=== PATIENT | male | born 1960 | race African-American/Black ===

== ENCOUNTER 2016-10-05 10:19 | Outpatient (CLI) | payer MEDICARE ==
[~2016-10-05] VITALS: Ht 172.7 cm; Wt 69.1 kg
--- NOTE | ~2016-10-05 | HEMODYNAMI ---
PATIENT:GREGORIO PORTILLO MEDICAL RECORD: [id number] : 64 LOCATION:[facility]O ADMISSION DATE: 10/05/16 Generatedon:10/05/201614:23 Patient name: GREGORIO PORTILLO Patient #: [id number] SSN: : 1960 Date of study: 10/05/2016 Page: Of Hemodynamic Procedure Report Patient Data Patient Demographics Procedure consent was obtained First Name: GREGORIO Gender: Male Last Name: BANDAR : 1960 [facility] Initial: KEVIN Age: 55 year(s) Patient #: [id number] Race: Black Additional ID: [id number] Contact details Address: [address] [place] [address] State: [place] City: [facility] Zip code: [address] Past Medical History History of disease Date Diagnosis Comments Hypertension Allergies Allergen Reaction Date Comments Reported Penicillins 03/04/2015 Admission Admission Data Admission Date: 10/05/2016 Admission Time: 10:19 Procedure Procedure Types Cath Procedure Peripheral Cath Diagnostic Procedure Venography Extremity Procedure Description Procedure Date Procedure Date: 10/05/2016 Procedure Start Time: 13:12 Procedure Staff Name Function Mango Garcia MD Performing Physician aZckary Dial RT Scrub Swetha Edmonds RN Nurse Saul Jauregui RT Monitor Procedure Data Cath Procedure Fluoroscopy Diagnostic fluoroscopy Total fluoroscopy Time: time: 20.4 min 20.4 min Diagnostic fluoroscopy Total fluoroscopy dose: dose: 203.19 mGy 203.19 mGy Contrast Material Contrast Material Type Amount (ml) Isovue 300 143 Entry Location Entry Primary Successful Side Size Upsize 1 Upsize Entry Closure Artis ccessful Closure Location (Fr) (Fr) 2 (Fr) Remarks Device Remarks Femoral Right 5 Fr 6 Fr Exoseal artery Mid-Length Diagnostic catheters Device Type Used For End Catheter Placement Merit ULTRA BOLUS FLUSH 5Fr 65CM catheter Procedure Medications Medication Administration Route Dosage Oxygen NC 2 l/min Heparin Flush Bag added to field 2 bags (1000units/500ml NS) Lidocaine 2% added to field 20 Benadryl I.V. 50 mg Versed I.V. 1 mg Fentanyl I.V. 50 mcg Versed I.V. 0.5 mg Fentanyl I.V. 25 mcg Heparin Bolus I.V. 5000 units Integrilin (Bolus I.V. 6.2 ml 2mg/ml) Versed I.V. 0.5 mg Fentanyl I.V. 25 mcg Versed I.V. 0.5 mg Versed I.V. 0.5 mg Versed I.V. 0.5 mg Heparin Bolus I.V. 2000 units Nitroglycerin IC/IA I.C. 200 mcg Versed I.V. 0.5 mg Fentanyl I.V. 25 mcg Plavix P.O. 600 mg Hemodynamics Rest Heart Rate: 84 (bpm) Snapshots Pre Cath Intra NCS Post Cath Vital Signs Time Heart Resp SPO2 NIBP (mmHg) Rhythm Pain Sedation Rate (ipm) (%) Status Level (bpm) 12:58:49 76 18 98 156/90(124) NSR 0 (11) 10(A) , No pain 13:03:03 88 16 100 167/96(116) NSR 0 (11) 10(A) , No pain 13:07:22 88 17 99 157/87(125) NSR 0 (11) 10(A) , No pain 13:11:38 82 16 99 151/93(119) NSR 0 (11) 10(A) , No pain 13:15:58 74 19 99 131/77(94) NSR 0 (11) 9(A) , No pain 13:20:08 76 23 97 129/82(101) NSR 0 (11) 9(A) , No pain 13:24:21 74 18 97 117/70(88) NSR 0 (11) 9(A) , No pain 13:28:25 80 16 97 135/82(112) NSR 0 (11) 9(A) , No pain 13:32:41 74 18 98 121/66(96) NSR 0 (11) 9(A) , No pain 13:36:47 84 19 98 126/80(101) NSR 0 (11) 9(A) , No pain 13:40:53 78 16 98 134/86(112) NSR 0 (11) 9(A) , No pain 13:45:03 75 18 98 139/83(107) NSR 0 (11) 9(A) , No pain 13:49:17 69 17 98 127/78(103) NSR 0 (11) 9(A) , No pain 13:53:29 73 16 98 114/74(91) NSR 0 (11) 9(A) , No pain 13:57:35 71 16 98 121/76(99) NSR 0 (11) 9(A) , No pain 14:01:44 72 16 97 119/70(85) NSR 0 (11) 9(A) , No pain 14:05:52 73 16 96 120/72(95) NSR 0 (11) 9(A) , No pain 14:08:26 72 18 96 114/75(93) NSR 0 (11) 9(A) , No pain 14:12:29 75 17 97 122/77(93) NSR 0 (11) 9(A) , No pain 14:16:35 75 16 98 132/80(102) NSR 0 (11) 9(A) , No pain 14:20:43 76 18 98 137/88(115) NSR 0 (11) 9(A) , No pain Medications Time Medication Route Dose Verified Delivered Reason Notes Effectiveness by by 12:55:23 Oxygen NC 2 Swetha Swetha used for l/min Edmonds Edmonds metal roofer RN 12:55:31 Heparin Flush added 2 Swetha Swetha used for Bag to bags Edmonds Edmonds procedure (1000units/500ml field REAGAN RN NS) 12:55:38 Lidocaine 2% added 20ml Swetha Swetha used for to vial Edmonds Edmonds procedure field REAGAN RN 12:55:49 Benadryl I.V. 50 mg Swetha Swetha Per physician Grey Edmonds RN RN 13:15:09 Versed I.V. 1 mg Swetha Swetha for sedation Grey Edmonds RN, RN 13:15:17 Fentanyl I.V. 50 Swetha Swetha for sedation mcg Grey Edmonds RN, RN 13:16:33 Versed I.V. 0.5 Swetha Swetha for sedation mg Grey Edmonds RN, RN 13:16:37 Fentanyl I.V. 25 Swetha Swetha for sedation mcg Grey Edmonds RN, RN 13:26:26 Heparin Bolus I.V. 5000 Swetha Swetha for units Edmonds Edmonds anticoagulation RN RN 13:28:34 Integrilin I.V. 6.2 Swetha Swetha for (Bolus 2mg/ml) ml Edmonds Edmonds anticoagulation RN RN 13:28:38 Versed I.V. 0.5 Swetha Swetha for sedation mg Edmonds Edmonds RN RN 13:28:41 Fentanyl I.V. 25 Swetha Swetha for sedation mcg Edmonds Edmonds RN RN 13:40:58 Versed I.V. 0.5 Swetha Swetha for sedation mg Edmonds Edmonds RN RN 13:44:05 Versed I.V. 0.5 Swetha Swetha for sedation mg Edmonds Edmonds RN RN 13:55:41 Versed I.V. 0.5 Swetha Swetha for sedation mg Edmonds Edmonds RN RN 13:57:17 Heparin Bolus I.V. 2000 Swetha Swetha for units Edmonds Edmonds anticoagulation RN RN 14:02:55 Nitroglycerin I.C. 200 Swetha Mango for IC/IA mcg Edmonds [facility] RN 14:03:34 Versed I.V. 0.5 Swetha Swetha for sedation mg Edmonds Edmonds RN RN 14:05:03 Fentanyl I.V. 25 Swetha Swetha for sedation mcg Edmonds Edmonds RN RN 14:12:45 Plavix P.O. 600 Swetha Swetha for mg Edmonds Edmonds antiplatelet RN RN therapy Procedure Log Time Note 12:48:00 Saul Jauregui RT (R) (CV) sent for patient. Start room use. 12:48:06 Time tracking: Regular hours 12:48:11 Plan of Care:Hemodynamics will remain stable., Cardiac rhythm will remain stable., Comfort level will be maintained., Respiratory function will remain adequate., Patient/ family verbilizes understanding of procedure., Procedure tolerated without complication., Recovers from procedure without complications.. 12:48:16 Patient received from Outpatients to IR Alert and oriented. Tansferred to table in Supine position. 12:48:17 Correct patient and procedure confirmed by team. 12:48:18 Signed procedure consent form obtained from patient. 12:48:19 ECG and BP/O2 sat monitors applied to patient. 12:48:21 Full Disclosure recording started 12:48:24 - 12:48:29 H&P Date Dictated: 10/05/2016 H&P Addendum completed by physician on day of procedure. (MUST COMPLETE FOR ALL OUTPATIENTS). 12:48:30 Pre-procedure instructions explained to patient. 12:48:30 Pre-op teaching completed and patient verbalized understanding. 12:48:32 Family in waiting room. 12:48:34 Patient NPO since Midnight. 12:48:39 Is the patient allergic to Iodine/contrast media? No. 12:48:45 Is patient on blood thinner?No 12:48:46 Patient diabetic? No. 12:48:47 - 12:48:48 ----Pre-sedation anethsthesia assessment.---- 12:48:50 Previous problem with sedation/anesthesia? No ? 12:48:51 Snore? No 12:48:53 Sleep apnea? No 12:48:54 Deviated septum? No 12:48:55 Opens mouth fully? Yes 12:48:56 Sticks out tongue? Yes 12:48:58 Airway obstruction? No ? 12:49:01 - 12:49:02 Dentures? No ? 12:49:06 - 12:49:09 Pre procedure: right dorsailis pedis pulse Doppler 12:49:13 Pre procedure: left posterior tibial pulse Doppler 12:49:17 Pre procedure: left dorsailis pedis pulse Doppler 12:49:20 Patient pain scale 0/10 no. 12:49:27 IV patent on arrival in left hand with 0.9% NaCl at [facility]. 12:49:30 Use device set IR Diagnostic 12:49:31 Sterile Angiographic Pack opened to sterile field. 12:49:33 Acist Manifold opened to sterile field. 12:49:33 Bag Decanter opened to sterile field. 12:49:34 Acist Hand Control opened to sterile field. 12:49:34 Acist Syringe opened to sterile field. 12:52:38 St Eduardo 5FR Sheath opened to sterile field. 12:55:23 Oxygen 2 l/min NC was given by Swetha Edmonds RN; used for procedure; 12:55:31 Heparin Flush Bag (1000units/500ml NS) 2 bags added to field was given by Swetha Edmonds RN; used for procedure; 12:55:38 Lidocaine 2% 20ml vial added to field was given by Swetha Edmonds RN; used for procedure; 12:55:49 Benadryl 50 mg I.V. was given by Swetha Edmonds RN; Per physician; 12:57:41 Vital chart was started 13:03:43 A Hubba ULTRA BOLUS FLUSH 5Fr 65CM catheter was advanced over the wire and used for . 13:04:08 Bilateral groins area was prepped with chlora-prep and draped in steril e fashion 13:04:12 Alarms reviewed by R. N. 13:04:13 Sharps counted by scrub and verified by R.N. 13:10:12 Merit 18G 9cm Percutaneous Entry needle opened to sterile field. 13:10:38 Baseline sample Acquired. 13::41 Rhythm: sinus rhythm 13:11:40 Physician arrived 13:11:40 --------ALL STOP TIME OUT------ 13:11:41 Final Timeout: patient, procedure, and site verified with staff and physician. All members of the team are in agreement. 13:11:44 Bilateral groins site verified by team. 13:11:48 Physical assessment completed. ASA score P 2 - A patient with mild systemic disease as per Mango Garcia MD. 13:11:52 Sedation plan: IV Moderate Sedation Versed, Fentanyl 13:12:10 Procedure started. 13:12:19 Local anesthetic to right femoral artery with Lidocaine 2% by Mango Garcia MD.INITIAL ACCESS ONLY 13:12:30 A 5 Fr sheath was inserted into the Right Femoral artery 13:15:09 Versed 1 mg I.V. was given by Swetha Edmonds RN; for sedation; 13:15:17 Fentanyl 50 mcg I.V. was given by Swetha Edmonds RN; for sedation; 13:16:33 Versed 0.5 mg I.V. was given by Swetha Edmonds RN; for sedation; 13:16:37 Fentanyl 25 mcg I.V. was given by Swetha Edmonds RN; for sedation; 13:17:29 abdominal angiography performed. 13:17:32 Right leg runoff performed. 13:17:34 Left leg runoff performed. 13:24:38 Terumo 6Fr Herminie Destination Sheath opened to sterile field. 13:24:49 Sheath upsized to a 6 Fr Mid-Length. 13:26:20 Terumo TORQUE DEVICE PLASTIC .038 opened to sterile field. 13:26:24 Merit BasixCompak Inflation Kit opened to sterile field. 13:26:26 Heparin Bolus 5000 units I.V. was given by Swetha Edmonds RN; for anticoagulation; 13:28:34 Integrilin (Bolus 2mg/ml) 6.2 ml I.V. was given by Swetha Edmonds RN; fo r anticoagulation; 13:28:38 Versed 0.5 mg I.V. was given by Swetha Edmonds RN; for sedation; 13:28:41 Fentanyl 25 mcg I.V. was given by Swetha Edmonds RN; for sedation; 13:40:58 Versed 0.5 mg I.V. was given by Swetha Edmonds RN; for sedation; 13:43:54 Inflation number: 1 A Cordis Powerflex Pro 5.0 X 100 X 135 balloon was prepped and advanced across the Mid Superficial Femoral, Left, then inflated to 10 REINALDO for 0:06 (min:sec). 13:44:03 Inflation number: 2 The Cordis Powerflex Pro 5.0 X 100 X 135 balloon wa s reinflated across the Mid Superficial Femoral, Left, to 10 REINALDO for 0:06 (min:sec). 13:44:05 Versed 0.5 mg I.V. was given by Swetha Edmonds RN; for sedation; 13:44:32 Inflation number: 3 The Cordis Powerflex Pro 5.0 X 100 X 135 balloon wa s reinflated across the Mid Superficial Femoral, Left, to 10 REINALDO for 0:04 (min:sec). 13:49:54 Cordis SMART 6 X 150 X 120 stent was deployed across Mid Superficial Femoral, Left . 13:54:39 Cordis SMART 6 X 80 X 120 stent was deployed across Mid Superficial Femoral, Left . 13:55:41 Versed 0.5 mg I.V. was given by Swetha Edmonds RN; for sedation; 13:57:17 Heparin Bolus 2000 units I.V. was given by Swetha Edmonds RN; for anticoagulation; 13:59:06 CXI SUPPORT .035 135 CM STR catheter opened to sterile field. 14:02:17 [place] Sci Choice PT Floppy J 300cm 0.014 guide wi opened to sterile field. 14:02:55 Nitroglycerin IC/IA 200 mcg I.C. was given by Mango Garcia MD; for vasodilation; 14:03:34 Versed 0.5 mg I.V. was given by Swetha Edmonds RN; for sedation; 14:05:03 Fentanyl 25 mcg I.V. was given by Swteha Edmonds RN; for sedation; 14:10:19 Inflation number: 1 A [place] Sci [place] 2.5 X 20 balloon was prepped and advanced across the Proximal Posterior Tibial, Left, then inflated to 10 REINALDO for 0:33 (min:sec). 14:10:26 Inflation number: 2 The [place] Sci [place] 2.5 X 20 balloon was reinflated across the Proximal Posterior Tibial, Left, to 10 REINALDO for 0:06 (min:sec). 14:12:45 Plavix 600 mg P.O. was given by Swetha Edmonds RN; for antiplatelet therapy; 14:12:47 Cordis 6Fr Exoseal opened to sterile field. 14:12:48 Cordis 6Fr BRITE TIP 11cm sheath opened to sterile field. 14:14:48 Sheath removed intact; hemostasis achieved with Exoseal to the Right Femoral artery. 14:14:52 Procedure ended.(Physican Out) 14:15:03 Fluoroscopy time 20.40 minutes. 14:15:10 Fluoroscopy dose: 203.19 mGy 14:15:10 Flurop Dose total: 203.19 14:15:15 Contrast amount:Isovue 300 143ml. 14:15:17 Sharps counted by scrub and verified by R.N. 14:15:57 Insertion/operative site no bleeding no hematoma. 14:16:00 Post-op/insertion site Right Femoral artery dressed using a 4 x 4 and Tegaderm. 14:16:10 Post right femoral artery:stable 14:16:13 Post Procedure Pulses reassessed and unchanged 14:16:17 Post-procedure physical assessment completed. ASA score P 2 - A patient with mild systemic disease as per Mango Garcia MD. 14:16:20 Post procedure rhythm: unchanged. 14:16:50 Post procedure instruction explained to patient.Patient verbalizes understanding. 14:16:52 Procedure and supply charges have been captured, reviewed, submitted an d are correct. 14:23:19 Report given to Outpatients. 14:23:45 Vital chart was stopped Intervention Summary Intervention Notes Time ActionType Lesion and Equipment Action# Pressure Duration Attributes Used 13:43:54 Inflate Mid Cordis 1 10 00:06 balloon Superficial Powerflex Femoral, Pro 5.0 X Left 100 X 135 balloon 13:44:03 Reinflate Mid Cordis 2 10 00:06 balloon Superficial Powerflex Femoral, Pro 5.0 X Left 100 X 135 balloon 13:44:32 Reinflate Mid Cordis 3 10 00:05 balloon Superficial Powerflex Femoral, Pro 5.0 X Left 100 X 135 balloon 13:49:54 Deploy self Mid Cordis 1 expanding Superficial SMART 6 X stent Femoral, 150 X 120 Left stent 13:54:39 Deploy self Mid Cordis 1 expanding Superficial SMART 6 X stent Femoral, 80 X 120 Left stent 14:10:19 Inflate Proximal [place] 1 10 00:34 balloon Posterior Sci Tibial, [place] Left 2.5 X 20 balloon 14:10:26 Reinflate Proximal [place] 2 10 00:06 balloon Posterior Sci Tibial, [place] Left 2.5 X 20 balloon Device Usage Item Name Manufacture Quantity Catalog Number [facility] Part Current Min imal Lot# / Charge Number Stock Stock Serial# Code Sterile Cardinal 1 [id number] 5 Angiographic Health Pack Acist Acist 1 14254 762070 917732 141303 5 Manifold Medical Systems Inc Bag Decanter Microtek 1 2002S 730067 28780 109881 5 Medical Inc. Acist Hand Acist 1 62969 739837 742914 040547 5 Control Medical Systems Inc Acist Acist 1 31765 550373 466346 061398 [address] Edu[address] Eduardo 1 655566 878524 922926 5 [id number] Sheath Merit ULTRA Merit 1 [id number] 832286 469056 5 BOLUS FLUSH Medical 5Fr 65CM catheter Merit 18G Merit 1 [id number] 905858 485853 308364 5 9cm Medical Percutaneous Entry needle Terumo 6Fr Terumo 1 RSR01 010844 60031 363471 5 Herminie Destination Sheath Terumo [place] 1 TD01 001083 636225 217857 5 TORQUE Scientific DEVICE PLASTIC .038 Merit Merit 1 [id number] 371958 473516 824603 15 BasixCompak Medical Inflation Kit Cordis Cardinal 1 [id number] 071547 193996 028356 5 Powerflex Health Pro 5.0 X 100 X 135 balloon Cordis SMART Cardinal 1 [id number] 011919 902175 538547 0 [id number] 6 X 150 X Health 120 stent Cordis SMART Cardinal 1 [id number] 923494 798987 836932 0 [id number] 6 X 80 X 120 Health stent CXI SUPPORT [facility] 1 [id number] 399220 937305 5 [id number] .035 135 CM STR catheter [place] Sci [place] 1 [id number] 410612 309644 190841 5 [id number] Choice PT Scientific Floppy J 300cm 0.014 guide wi [place] Sci [place] 1 [id number] 849390 735271 617926 1 [id number] [place] 2.5 Scientific X 20 balloon Cordis 6Fr Cardinal 1 EX600 680950 801078 183776 10 [id number] Exoseal Health Cordis 6Fr Cardinal 1 [id number] 114867 590461 5 BRITE TIP Health 11cm sheath Signature Audit [place] Stage Time Signature Unsigned Intra-Procedure 10/05/2016 Saul 2:23:41 PM Juventino RT (R) (CV) Signatures Monitor : Saul Signature : Juventino RT Date : Time : [address] [place] [address]
[~2016-10-05 10:19] MED LIST: ASPIRIN81 MG PO; COREG CR10 MG PO; COREG6.25 MG PO; HEMOCYTE PLUS C1 CAP PO; HYDRALAZINE HCL25 MG PO; HYDROCODONE-APA1 TAB PO; ISOSORBIDE MONO30 M1 PO; Imdur PO; NITROSTAT0.4 MG SL; NORVASC10 MG PO; ZESTRIL40 MG PO
[2016-10-05] MEDS ORDERED: ISOSORBIDE MONO30 M1 PO (11:09)
[2016-10-05 11:16] VITALS: BP 119/78; Ht 172.7 cm; Wt 69.1 kg
[2016-10-05 12:14] LABS: BASOPHILS 0.3 % (0.0-2.0); HEMATOCRIT 45.2 % (42.0-54.0); HEMOGLOBIN 15.7 g/dL (13.5-17.5); IMMATURE GRANULOCYTES 0.1 % (0-5); LYMPHOCYTES 19.9 % (15-50); MCH 31.2 pg (26.0-34.0); MCHC 34.7 g/dL (31.0-37.0); MCV 89.7 fL (80.0-100.0); MEAN PLATELET VOLUME 12.6 fL (7.4-10.4); MONOCYTES 6.1 % (2-11); NEUTROPHILS 68.6 % (40-80); RBC 5.04 10x6/uL (4.20-6.10); RDW 13.6 % (11.5-14.5); WBC 7.6 10x3/uL (4.8-10.8)
[2016-10-05 12:17] LABS: PLATELET COUNT 238 10x3/uL (130-400)
[2016-10-05 12:20] LABS: ANION GAP 15.8 mmol/L (8-16); CALCIUM 10.1 mg/dL (8.5-10.1); CARBON DIOXIDE 26.1 mmol/L (21.0-32.0); CREATININE - SERUM 1.3 mg/dL (0.6-1.3); POTASSIUM - SERUM 3.9 mmol/L (3.5-5.1)
[2016-10-05] MEDS ORDERED: PLAVIX75 MG PO (14:35)
--- NOTE | 2016-10-05 14:45 | NUR ---
RESTING IN BED, VSS. O2 @ 2L NC, NO DISTRESS NOTED. RIGHT GROIN DRSG CDI, NO HEMATOMA NOTED. PULSES PALPABLE X4. PRESCRIPTION FOR PLAVIX CALLED IN TO REQUESTED PHARMACY.
--- NOTE | 2016-10-05 14:55 | NUR ---
VOIDED 550CC OF CLEAR YELLOW URINE.
--- NOTE | 2016-10-05 15:14 | NUR ---
RESTING IN BED, VSS. SANDWICH TRAY SERVED, FEEDING SELF. 02 @ 2L NC, NO RESP DISTRESS NOTED. WILL CONTINUE TO MONITOR.
--- NOTE | 2016-10-05 15:24 | NUR ---
VOIDED 150CC OF CLEAR YELLOW URINE.
--- NOTE | 2016-10-05 15:25 | NUR ---
REPORT CALLED TO JENNA IN OPS. UPON TRANSFER RIGHT WRIST TR BAND IN PLACE, AUGUST CDI. VSS. SANDWICH TRAY SENT WITH PT. TRANSFERRED BACK TO OPS VIA STRETCHER.
--- NOTE | 2016-10-05 16:07 | NUR ---
1540 AWAKE AND ALERT X4 RIGHT GRION SOFT WITH DRESSING C/D/I
--- NOTE | 2016-10-05 20:04 | NUR ---
1814 IV DC WITH CATHER TIP INTACT , RIGHT GRION AREA WITHOUT BLEEDING OR HEMATOMA
--- NOTE | 2016-10-06 14:16 | OP ---
PATIENT NAME: GREGORIO PORTILLO MEDICAL RECORD: [id number] :64 LOCATION:D.CAT ADMISSION DATE: SURGEON: CAROL SNOW MD DATE OF OPERATION: 10/05/2016 PROCEDURE: AFRO, PTCA stent of the left superficial femoral artery. After a 5-Zambian sheath right femoral artery, an abdominal aorta runoff was performed. Nonselective angiography of both renal. FINDINGS: Right renal artery shows no evidence of flow obstructive disease. Left renal artery proper shows no obstructive disease. 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 RIGHT: Right iliac system: Right iliac system is free of disease. Femoral system: Deep femoral artery shows no significant disease. The superficial femoral artery on the right shows an approximately 5 cm area of total occlusion with reconstitution distally and 2-vessel runoff. LEFT: Left iliac system: Left iliac system shows a mid iliac stenosis of approximately 50%. Femoral system: The left femoral system shows no stenosis. There are multiple areas of severe 90% stenosis from the proximal superficial femoral to the distal superficial femoral. There is about 80% stenosis of the posterior tibial as well. This appears only minimally calcific. PLAN: Intervention to the left superficial femoral and posterior tibial momentarily. DESCRIPTION OF PROCEDURE: After a 5-Zambian sheath was exchanged for a 6-Zambian sheath we were able to placed a glide catheter down to the distal portion of the superficial femoral. Stents were placed in the following fashion: Distally a 150 x 6 SMART stent was placed, more proximally an 80 mm x 6 SMART stent was placed. This showed an excellent resolution of the entire 90% plus stenosis in the superficial femoral to no significant residual. Next, using the indwelling catheter as an exchange catheter, we placed a PT extra support wire down to the posterior tibial, this was followed by a 2.5 [place]ks balloon inflated to the 90% stenosis of the posterior tibial to 8 atmospheres. This shows excellent resolution of 80% stenosis in the posterior tibial. No significant residual or dissection. Successful revascularization of the left superficial and left posterior tibial arteries. We will plan for intervention of the right at a later date. TRANSINT:[id number] Voice Confirmation ID: [id number] DOCUMENT ID: [id number] OPERATIVE REPORT [id number] GREGORIO PORTILLO CAROL PIERRE MD at 1416 CC: [id number] DICTATION DATE: 10/05/16 1545 TEXTILE SUPERVISOR: 10/05/161922 DEP CLI 10/05/16 [address] [place] [address]
== END 2016-10-05 18:40 | disposition home or self-care (01) ==
LOC: D.CATH 10:19
PROVIDERS: Internal Medicine Interventional Cardiology
DX: I70.219 Atherosclerosis of native arteries of extremities with intermittent claudication, unspecified extremity (principal); I10 Essential (primary) hypertension; Z87.891 Personal history of nicotine dependence; E78.5 Hyperlipidemia, unspecified; I25.10 Atherosclerotic heart disease of native coronary artery without angina pectoris

== ENCOUNTER 2016-10-28 10:51 | Outpatient (CLI) | payer MEDICARE ==
[~2016-10-28] VITALS: Ht 172.7 cm; Wt 66.8 kg
--- NOTE | ~2016-10-28 | HEMODYNAMI ---
PATIENT:GREGORIO PORTILLO MEDICAL RECORD: [id number] : 64 LOCATION:DDEO ADMISSION DATE: 10/28/16 Generatedon:10/28/201614:14 Patient name: GREGORIO PORTILLO Patient #: [id number] SSN: : 1960 Date of study: 10/28/2016 Page: Of Hemodynamic Procedure Report Patient Data Patient Demographics Procedure consent was obtained First Name: GREGORIO Gender: Male Last Name: BANDAR : 1960 [facility] Initial: KEVIN Age: 55 year(s) Patient #: [id number] Race: Black Additional ID: [id number] Contact details [address]: [address] [place] [address] [place] [facility] [place]: [address] Past Medical History History of disease Date Diagnosis Comments Hypertension Allergies Allergen Reaction Date Comments Reported Penicillins 03/04/2015 Admission Admission Data Admission Date: 10/28/2016 Admission Time: 10:51 Height (in.): 68 BSA: 1.79 (m2) Height (cm.): 172.72 BMI: 22.35 (kg/m2) Weight (lbs.): 147 Weight (kg.): 66.68 Lab Results Lab Result Date: 10/28/2016 Lab Result Time: 0:00 Biochemistry Name Units Result Min Max BUN mg/dl 8 --(*---)-- 7 18 Creatinine mg/dl 1.1 --(--*-)-- 0.6 1.3 CBC Name Units Result Min Max Hemoglobin g/dl 13.9 --(*---)-- 13.5 17.5 Procedure Procedure Types Cath Procedure Peripheral Cath Diagnostic Procedure Cath Peripheral Procedure Description Procedure Date Procedure Date: 10/28/2016 Procedure Start Time: 13:45 Procedure End Time: 14:13 Procedure Staff Name Function Mango Garcia MD Performing Physician Jennifer Tobias RT Scrub Zeyad Bunn RT Monitor Zak Villarreal RN Nurse Procedure Data Cath Procedure Fluoroscopy Diagnostic fluoroscopy Total fluoroscopy Time: 9.6 time: 9.6 min min Diagnostic fluoroscopy Total fluoroscopy dose: 93 dose: 93 mGy mGy Contrast Material Contrast Material Type Amount (ml) Isovue 300 41 Entry Location Entry Primary Successful Side Size Upsize Upsize Entry Closure Succes sful Closure Location (Fr) 1 (Fr) 2 (Fr) Remarks Device Remarks Femoral Left 6 Fr 6 Fr 6 Fr Exoseal artery Short Long Short Estimated blood loss: 10 ml Diagnostic catheters Device Type Used For End Catheter Placement Diagnostic 5Fr IMT Procedure Catheter Procedure Complications No complications Procedure Medications Medication Administration Route Dosage Oxygen NRB 3 l/min Heparin Flush Bag added to field 2 bags (1000units/500ml NS) Lidocaine 2% added to field 20 0.9% NaCl I.V. 100 ml/hr Fentanyl I.V. 100 mcg Versed I.V. 2 mg Heparin Bolus I.V. 4000 units Fentanyl I.V. 50 mcg Fentanyl I.V. 50 mcg Hemodynamics Rest BSA: 1.79 (m2) HGB: 13.9 (g/dl) O2 Consumption: Estimated: 219.41 (ml/min) O2 Co nsumption indexed: Estimated:122.58 (ml/min/m) Heart Rate: 80 (bpm) Snapshots Pre Cath Intra NCS Post Cath Vital Signs Time Heart Resp SPO2 etCO2 [id number] NIBP (mmHg) Rhythm Pain Sedatio n Rate (ipm) (%) (mmHg) (mmHg) Status Level (bpm) 13:29:01 95 32 97 0 0 154/102(120) NSR 0 (11) 10(A) , No pain 13:33:15 79 19 100 0 0 155/95(126) NSR 0 (11) 10(A) , No pain 13:37:33 76 16 100 0 0 121/80(97) NSR 0 (11) 10(A) , No pain 13:41:38 77 18 100 0 0 125/82(99) NSR 0 (11) 10(A) , No pain 13:45:44 81 18 99 0 0 129/84(110) NSR 0 (11) 10(A) , No pain 13:49:50 84 17 98 0 0 127/90(103) NSR 0 (11) 9(A) , No pain 13:53:58 79 16 98 0 0 129/84(107) NSR 0 (11) 9(A) , No pain 13:58:06 79 18 99 0 0 114/84(104) NSR 0 (11) 9(A) , No pain 14:02:09 79 18 99 0 0 116/77(89) NSR 0 (11) 9(A) , No pain 14:06:13 80 17 99 0 0 123/83(101) NSR 0 (11) 9(A) , No pain 14:10:05 80 18 100 0 0 125/82(100) NSR 0 (11) 9(A) , No pain 14:14:13 81 9 100 0 0 132/81(113) NSR 0 (11) 9(A) , No pain Medications Time Medication Route Dose Verified Delivered Reason Notes Effectiveness by by 13:28:12 Oxygen NRB 3 Mango Colleen Per physician l/min St. Ketan Galvin RN, MD 13:28:22 Heparin Flush added 2 Mango Mango used for Bag to bags [facility] procedure (1000units/500ml field MD HARDEN NS) 13:28:29 Lidocaine 2% added 20ml Mango Mango [facility] MD HARDEN 13:37:59 0.9% NaCl I.V. 100 Mango Colleen Per physician ml/hr St. Ketan Galvin RN, MD 13:45:00 Fentanyl I.V. 100 Zak Zak for sedation mcg Phil Villarreal RN RN 13:45:09 Versed I.V. 2 mg Zak Zak for sedation Phil Villarreal RN RN 13:47:13 Heparin Bolus I.V. 4000 Zak Zak for units Phil Villarreal RN anticoagulation RN 13:47:26 Fentanyl I.V. 50 Zak Zak for sedation mcg Phil Villarreal RN RN 14:02:21 Fentanyl I.V. 50 Zak Zak for sedation mcg Phil Villarreal RN pegger dobby looms Log Time Note 13:00:13 Jennifer Tobias RT(R) sent for patient. Start room use. 13:20:14 Time tracking: Regular hours 13:20:19 Plan of Care:Hemodynamics will remain stable., Cardiac rhythm will remain stable., Comfort level will be maintained., Respiratory function will remain adequate., Patient/ family verbilizes understanding of procedure., Procedure tolerated without complication., Recovers from procedure without complications.. 13:26:57 Patient received from Pre/Post Procedure Room to CCL 1 Alert and oriented. Tansferred to table in Supine position. 13:26:59 Warm blankets applied, and carlos hugger turned on for patient comfort. 13:26:59 Correct patient and procedure confirmed by team. 13:27:01 Signed procedure consent form obtained from patient. 13:27:01 ECG and BP/O2 sat monitors applied to patient. 13:28:00 Vital chart was started 13:28:12 Oxygen 3 l/min NRB was given by Colleen Galvin RN; Per physician; 13:28:22 Heparin Flush Bag (1000units/500ml NS) 2 bags added to field was given by Mango Garcia MD; used for procedure; 13:28:29 Lidocaine 2% 20ml vial added to field was given by Mango Garcia MD; used for procedure; 13:34:21 Baseline sample Acquired. 13:34:24 Rhythm: sinus rhythm 13:34:33 Full Disclosure recording started 13:34:47 H&P Date Dictated: 10/05/2016 Within 30 days and on chart., H&P Addendum completed by physician on day of procedure. (MUST COMPLETE FOR ALL OUTPATIENTS). 13:34:48 Pre-procedure instructions explained to patient. 13:34:48 Pre-op teaching completed and patient verbalized understanding. 13:34:51 Family in waiting room. 13:34:52 Patient NPO since Midnight. 13:34:55 Is the patient allergic to Iodine/contrast media? No. 13:35:10 Is patient on blood thinner?Yes 13:35:13 ACC The patient was administered the following blood thiners within the last 24 hours: ACCPlavix 13:35:15 Patient diabetic? No. 13:35:17 Previous problem with sedation/anesthesia? No ? 13:35:18 Snore? No 13:35:19 Sleep apnea? No 13:35:20 Deviated septum? No 13:35:21 Opens mouth fully? Yes 13:35:21 Sticks out tongue? Yes 13:35:23 Airway obstruction? No ? 13:35:26 Dentures? Yes IN 13:35:41 Pre procedure: right dorsailis pedis pulse 1+ Palpable, but thready & weak; easily obliterated 13:35:44 Patient pain scale 0/10 ?. 13:35:48 Pre procedure: left dorsailis pedis pulse 1+ Palpable, but thready & weak; easily obliterated 13:35:55 IV patent on arrival in left forearm with 0.9% NaCl at [facility]. 13:35:57 Lab results completed and on chart. 13:36:02 Bilateral groins area was prepped with chlora-prep and draped in sterile fashion 13:36:03 Alarms reviewed by R. N. 13:36:03 Sharps counted by scrub and verified by R.N. 13:37:19 Use device set Femoral PCI 13:37:20 Tegaderm 4 x 4 opened to sterile field. 13:37:21 Acist Manifold opened to sterile field. 13:37:23 Acist Syringe opened to sterile field. 13:37:23 Acist Hand Control opened to sterile field. 13:37:24 Bag Decanter opened to sterile field. 13:37:24 Medline Cath Pack opened to sterile field. 13:37:24 Terumo 6Fr Rosholt Sheath opened to sterile field. 13:37:25 St Eduardo 260cm J .035 wire opened to sterile field. 13:37:25 Merit BasixCompak Inflation Kit opened to sterile field. 13:37:59 0.9% NaCl 100 ml/hr I.V. was given by Colleen Galvin RN; Per physician; 13:38:00 Terumo 6Fr Rosholt Destination Sheath opened to sterile field. 13:38:32 Terumo ANGLED SS 260CM glide wire opened to sterile field. 13:39:10 --------ALL STOP TIME OUT------ 13:39:11 Final Timeout: patient, procedure, and site verified with staff and physician. All members of the team are in agreement. 13:39:13 Bilateral groins site verified by team. 13:39:16 Physical assessment completed. ASA score P 2 - A patient with mild systemic disease as per Mango Garcia MD. 13:39:20 Sedation plan: IV Moderate Sedation Versed, Fentanyl 13:44:57 Procedure started. 13:45:00 Fentanyl 100 mcg I.V. was given by Zak Villarreal RN; for sedation; 13:45:00 Local anesthetic to left femerol artery with Lidocaine 2% by Mango Garcia MD.INITIAL ACCESS ONLY 13:45:09 Versed 2 mg I.V. was given by Zak Villarreal RN; for sedation; 13:45:53 Zero performed for pressure channel P1 13:46:09 A 6 Fr Short sheath was inserted into the Left Femoral artery 13:46:15 A Diagnostic 5Fr IMT Catheter was advanced over the wire and used for Procedure. 13:46:36 Glidewire advanced. 13:47:13 Heparin Bolus 4000 units I.V. was given by Zak Villarreal RN; for anticoagulation; 13:47:26 Fentanyl 50 mcg I.V. was given by Zak Villarreal RN; for sedation; 13:49:45 Glidewire advanced around the horn and down the right SFA. 13:52:23 [place] Sci AMPLATZ Super stiff 260 3MM J guidewir opened to sterile field. 13:53:25 Glidewire exchanged for Amplatz wire, to better support sheath advancement around the horn. 13:53:38 Sheath upsized to a 6 Fr Long. 13:54:14 [place] Sci Choice PT Extra Support J 300cm .014 gu opened to sterile field. 13:54:30 Wire removed. 13:55:28 Choice PT XS wire advanced. 14:00:25 Patient Height : 68 inches 14:00:27 Patient Weight : 147 lbs 14:02:21 Fentanyl 50 mcg I.V. was given by Zak Villarreal RN; for sedation; 14:02:29 Lab Result : Hemoglobin 13.9 g/dl 14:02:29 Lab Result : Creatinine 1.1 mg/dl 14:02:29 Lab Result : BUN 8 mg/dl 14:03:48 The [place] Sci Pacific 3.0 X 30 balloon was advanced and then removed because of failure to cross lesion 14:03:58 Wire removed. unable to cross lesion. 14:04:22 Cordis 6Fr Exoseal opened to sterile field. 14:04:52 Sheath upsized to a 6 Fr Short. 14:05:05 Sheath removed intact; hemostasis achieved with Exoseal to the Left Femoral artery. 14:06:06 Procedure ended.(Physican Out) 14:06:27 Fluoroscopy time 09.60 minutes. 14:06:30 Fluoroscopy dose: 93 mGy 14:06:30 Flurop Dose total: 93 14:06:35 Contrast amount:Isovue 300 41ml. 14:06:36 Sharps counted by scrub and verified by R.N. 14:06:39 Insertion/operative site no bleeding no hematoma. 14:06:42 Post-op/insertion site Left Femoral artery dressed using a 4 x 4 and Tegaderm. 14:06:44 Post Procedure Pulses reassessed and unchanged 14:06:50 Post-procedure physical assessment completed. ASA score P 2 - A patient with mild systemic disease as per Mango Garcia MD. 14:06:54 Post procedure rhythm: unchanged. 14:06:57 Estimated blood loss: 10 ml 14:07:02 Post procedure instruction explained to patient.Patient verbalizes understanding. 14:07:02 Patient needs reinforcement of post procedure teaching. 14:07:11 Procedure type changed to Cath procedure, Peripheral Cath Diagnostic Procedure, Cath Peripheral 14:07:19 Procedure Complication : No complications 14:10:07 Procedure and supply charges have been captured, reviewed, submitted and are correct. 14:13:47 Vital chart was stopped 14:13:48 See physician's report for complete and final results. 14:13:52 Report given to Pre/Post Procedure Room. 14:13:56 Patient transfered to Pre/Post Procedure Room with Stretcher. 14:13:59 Procedure ended. 14:13:59 Full Disclosure recording stopped 14:14:30 End room use (Document Last) Intervention Summary Intervention Notes Time ActionType Lesion and Equipment Action# Pressure Duration Attributes Used 14:03:48 Discard [place] Balloon Sci Pacific 3.0 X 30 balloon Device Usage Item Name Manufacture Quantity Catalog Number Hospital Part Current Mini mal Lot# / Charge Number Stock Stock Serial# Code Tegaderm 4 3M 1 1626W [id number] 416176 237958 5 x 4 Acist Acist 1 07499 716842 358526 645185 5 Manifold Medical Systems Inc Acist Acist 1 06014 284031 141757 395061 20 Syringe Medical Systems Inc Acist Hand Acist 1 33490 875061 368244 506041 5 Control Medical Systems Inc Bag Microtek 1 2002S 753611 99858 607538 5 Exo. Medline Cardinal 1 [id number] 309307 21257 251859 5 Cath Pack Health Terumo 6Fr Terumo 1 BCG008 905407 234483 905945 [address] St Eduardo 1 224059 804268 280391 346322 30 260cm J .035 wire Merit Merit 1 LP6998 763062 173479 099775 15 BasixCompak Medical Inflation Kit Terumo 6Fr Terumo 1 RSR01 455403 91228 483404 5 Rosholt Destination Sheath Terumo Terumo 1 OO3375 216167 741435 491370 5 ANGLED SS 260CM glide wire Diagnostic [place] 1 [id number] 505944 435975 29125 5 5Fr IMT Scientific Catheter [place] Sci [place] 1 [id number] 286063 669596 5 AMPLATZ Scientific Super stiff 260 3MM J guidewir [place] Sci [place] 1 [id number] 119988 162355 998000 5 Choice PT Scientific Extra Support J 300cm .014 gu [place] Sci [place] 1 [id number] 571768 147361 565780 1 [id number] Bungee Labs Scientific 3.0 X 30 balloon Cordis 6Fr Cardinal 1 EX600 246480 477023 432645 10 Exoseal Health Signature Audit [place] Stage Time Signature Unsigned Intra-Procedure 10/28/2016 Zeyad Bunn 2:14:46 PM RT(R) Signatures Monitor : Zeyad Bunn RT Signature : Date : Time : [address] [place] [address]
[~2016-10-28 10:51] MED LIST changes: +PLAVIX75 MG PO
[2016-10-28 11:35] LABS: BASOPHILS 0.3 % (0.0-2.0); EOSINOPHILS 4.1 % (0-7); HEMATOCRIT 40.5 % (42.0-54.0); HEMOGLOBIN 13.9 g/dL (13.5-17.5); IMMATURE GRANULOCYTES 0.1 % (0-5); LYMPHOCYTES 19.8 % (15-50); MCH 30.6 pg (26.0-34.0); MCHC 34.3 g/dL (31.0-37.0); MCV 89.2 fL (80.0-100.0); MEAN PLATELET VOLUME 12.6 fL (7.4-10.4); MONOCYTES 8.8 % (2-11); NEUTROPHILS 66.9 % (40-80); RBC 4.54 10x6/uL (4.20-6.10); RDW 13.5 % (11.5-14.5); WBC 7.3 10x3/uL (4.8-10.8)
[2016-10-28 11:36] LABS: PLATELET COUNT 289 10x3/uL (130-400)
[2016-10-28 11:38] VITALS: BP 131/88; Ht 172.7 cm; Wt 66.8 kg
[2016-10-28 12:44] LABS: ANION GAP 12.4 mmol/L (8-16); CALCIUM 9.1 mg/dL (8.5-10.1); CARBON DIOXIDE 29.5 mmol/L (21.0-32.0); CREATININE - SERUM 1.1 mg/dL (0.6-1.3); POTASSIUM - SERUM 3.9 mmol/L (3.5-5.1)
--- NOTE | 2016-10-28 14:45 | NUR ---
HR 77 WITH CHEST PAIN DENIED BP 139/86. 7 FR EXOSEAL L/GROIN CDI NO BLEEDING NO HEMATOMA NOTED. INSTRUCTED PATIENT TO KEEP HEAD FLAT ON PILLOW WITH LLE STRAIGHT
--- NOTE | 2016-10-28 15:15 | NUR ---
1515 RESTING QUIETLY WITH EYES CLOSED NO DISTRESS NOTED. 6 FR EXOSEAL L GROIN CDI NO BLEEDING NO HEAMTOMA NOTED VSS 1545 NO CHANGE IN ASSESSMENT PATIENT CONTINUES TO SLEEP WITH VSS L/GROIN CDI
--- NOTE | 2016-10-28 16:00 | NUR ---
1600 VSS WITH 6 FR EXOSEAL L/GROIN CDI PATIENT VERBALIZED NO C/O. SANDWICH AND SODA BEDSIDE
--- NOTE | 2016-10-28 16:45 | NUR ---
VSS WITH CHEST PAIN DENIED 6 FR EXOSEAL L/GROIN CDI NO BLEEDING NO HEMATOMA NOTED FAMILY AT SIDE
--- NOTE | 2016-10-28 17:00 | NUR ---
1700 REPOSITIONED TO SITTING WITH HOB UP 45 DEGREES L/GROIN CDI WITH CHEST PAIN DENIED PIV REMOVED FROM LEFT HAND WITH DRESSING APPLIED PATIENT UP TO GET DRESSED FOR DISCHARGE HOME 1725 DISCHARGE INSTRUCTIONS GONE OVER WITH PATIENT AND FAMILY LEFT VIA WC TO PARKING FOR FAMILY TO TRANSPORT HOME
--- NOTE | 2016-11-03 13:35 | OP ---
PATIENT NAME: GREGORIO PORTILLO MEDICAL RECORD: [id number] :64 LOCATION:D.CAT ADMISSION DATE: SURGEON: CAROL SNOW MD DATE OF OPERATION: 10/28/2016 Attempted PTCA Stent Report Angiography showed a known totally occluded right SFA. Using Amplatz catheter, we exchanged Arrow sheath for backup support. Then, attempts were made across the totally occluded SFA with a PT export and [place] XT wire both with a backup of a 3.0 Pleasants balloon; however, we were unable to find a true lumen or false lumen. At this point, the procedure was terminated. We will refer to Dr. Washington for further revascularization. TRANSINT:[id number] Voice Confirmation ID: [id number] DOCUMENT ID: [id number] CAROL SNOW MD at 1335 CC: [id number] DICTATION DATE: 10/28/16 1414 SLD INCLUSION TEACHER: 10/28/16 1805 DEP CLI 10/28/16 [address] [place] [address]
== END 2016-10-28 17:25 | disposition home or self-care (01) ==
LOC: D.CATH 10:51
PROVIDERS: Internal Medicine Interventional Cardiology
DX: I70.221 Atherosclerosis of native arteries of extremities with rest pain, right leg (principal); I25.10 Atherosclerotic heart disease of native coronary artery without angina pectoris; E78.5 Hyperlipidemia, unspecified; I10 Essential (primary) hypertension; Z87.891 Personal history of nicotine dependence

== ENCOUNTER 2018-03-16 13:01 | Inpatient (IN) | payer MEDICARE ==
[~2018-03-16] VITALS: Ht 172.7 cm; Wt 66.3 kg
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
--- NOTE | ~2018-03-16 | EC ---
PATIENT:GREGORIO PORTILLO DATE OF SERVICE: 03/16/18 SEX: M MEDICAL RECORD: [id number] DATE OF : 64 LOCATION:D.M2 D.210 AGE OF PATIENT: 57 ADMISSION DATE: 03/16/18 REFERRING PHYSICIAN: INTERPRETING PHYSICIAN: ELIEL SOLOMON MD ECHOCARDIOGRAM REPORT ECHO CHARGES 4 ECHO COMPLETE Date: 03/17 CLINICAL DIAGNOSIS: CVA ECHOCARDIOGRAPHIC MEASUREMENTS (adult normal given) AC root (d.<3.7cm) 3.4 cm LV Septum d (<1.2 cm> 1.0 cm Valve Excursion 2.1 cm LV Septum (systole) 1.9 cm Left Atria (s.<4.0cm> 3.1 cm LVPW d(<1.2cm) 1.5 cm RV (d.<2.3cm) 2.0 cm LVPW (sytole) 1.9 cm LV diastole(<5.6CM) 4.4 cm MV E-F(>70mm/sec) cm LV systole 2.0 cm LVOT Diameter 2.0 cm MV exc.(>10mm) cm Est.ejection fraction (50-75%) % DOPPLER: LVIT cm/sec A 85.0 cm/sec E 72.0 cm/sec LA cm/sec RVSP 28.0 mmHg LVOT 97.0 cm/sec AOP1/2T m/s Asc. Ao 83.0 cm/sec RVOT 66.0 cm/sec RA cm/sec PA 84.0 cm/sec AV Gradient Peak 2.7 mmHg AV Mean 1.3 mmHg AV Area 4.2 cm MV Gradient Peak 2.0 mmHg MV Mean 0.76 mmHg MV Area cm COMMENTS: Certified Composites Technician: Tian HARMONOE Nutrient Management Specialist: 2 Dr. Yanez TAPE# PACS Pericardial Effusion N DATE OF SERVICE: 03/16/2018 PROCEDURE: Echocardiogram with bubble study. INDICATION: CVA. FINDINGS: 1. Left ventricular chamber size is within normal limits. Left ventricular systolic function is mildly reduced, overall ejection fraction 40% to 45%. There is mild global hypokinesis throughout all segments with no discrete wall ECHOCARDIOGRAM REPORT [id number] GREGORIO PORTILLO motion abnormalities present. 2. Left atrium, right atrium, and right ventricle chamber sizes are within normal limits. 3. No evidence of ASD or VSD. 4. Valvular structures have normal structure and motion. 5. Doppler interrogation reveals only trace mitral regurgitation, no other valvular insufficiency or stenosis. Pulmonary systolic pressure is normal estimated at 28 mmHg. 6. No evidence of pericardial effusion or left ventricular thrombus. 7. Bubble study was performed. There is no hipfv-vr-liyn or gkrk-ng-suqks shunt. 8. No cardiac source of neurologic emboli. TRANSINT:[id number] Voice Confirmation ID: [id number] DOCUMENT ID: [id number] ELIEL SOLOMON MD at 1100 CC: [id number] DICTATION DATE: 03/17/18 1042 VICE PRESIDENT REGULATORY: 03/17/18 1057 DIS IN 03/19/18 [facility] [address] [place] [address]
[2018-03-16 13:50] VITALS: BP 146/85; BMI 22.2
[2018-03-16 15:23] LABS: BASOPHILS 0.3 % (0-2); EOSINOPHILS 6.9 % (0-7); HEMATOCRIT 43.3 % (42.0-54.0); HEMOGLOBIN 14.6 g/dL (13.5-17.5); IMMATURE GRANULOCYTES 0.3 % (0-5); LYMPHOCYTES 17.5 % (15-50); MCH 29.7 pg (26.0-34.0); MCHC 33.7 g/dL (31.0-37.0); MCV 88.2 fL (80.0-100.0); MONOCYTES 8.5 % (2-11); NEUTROPHILS 66.5 % (40-80); PLATELET COUNT 197 10x3/uL (130-400); RBC 4.91 10x6/uL (4.20-6.10); RDW 14.6 % (11.5-14.5); WBC 6.3 10x3/uL (4.8-10.8)
[2018-03-16 15:32] LABS: APTT 28.4 SECONDS (22.8-39.4); INR 0.99 (0.85-1.17); PROTIME 12.7 SECONDS (11.6-15.0)
[2018-03-16 15:36] LABS: ALBUMIN 3.7 g/dL (3.4-5.0); ANION GAP 10.8 mmol/L (8-16); BILIRUBIN - DIRECT 0.13 mg/dL (0.00-0.30); BILIRUBIN - INDIRECT 0.62 mg/dL (0.00-1.00); BILIRUBIN - TOTAL 0.75 mg/dL (0.2-1.3); CALCIUM 9.2 mg/dL (8.5-10.1); CARBON DIOXIDE 29.4 mmol/L (21.0-32.0); CREATININE - SERUM 1.1 mg/dL (0.6-1.3); POTASSIUM - SERUM 4.2 mmol/L (3.5-5.1); PROTEIN - SERUM 8.1 g/dL (6.4-8.2)
[2018-03-16 15:41] VITALS: BP 142/75
[2018-03-16 16:40] LABS: ERYTHROCYTE SEDIMENTATION RATE 20 mm/hr (0-20)
[2018-03-16 18:34] LABS: APPEARANCE CLEAR (CLEAR); BILIRUBIN NEGATIVE (NEGATIVE); COLOR YELLOW (YELLOW); GLUCOSE NEGATIVE (NEGATIVE); KETONE NEGATIVE (NEGATIVE); NITRITE NEGATIVE (NEGATIVE); PROTEIN NEGATIVE (NEGATIVE); SPECIFIC GRAVITY 1.005 (1.005-1.020); UROBILINOGEN NORMAL (NORMAL)
[2018-03-16 22:34] VITALS: BP 108/71
[2018-03-17 01:00] VITALS: BP 117/72
[2018-03-17 05:59] VITALS: BP 124/73
[2018-03-17 07:52] VITALS: BP 124/77
[2018-03-17 12:02] VITALS: BP 124/80
[2018-03-17 12:17] VITALS: Ht 172.7 cm; Wt 66.3 kg
[2018-03-17 16:27] VITALS: BP 106/66
[2018-03-17 20:00] VITALS: BP 122/74
[2018-03-18] VITALS: BP 138/79
[2018-03-18 04:00] VITALS: BP 125/77
[2018-03-18 08:52] VITALS: BP 145/88
[2018-03-18 16:33] VITALS: BP 116/72
[2018-03-18 21:43] VITALS: BP 142/82
[2018-03-19 03:03] VITALS: BP 112/68
[2018-03-19 06:01] VITALS: BP 114/68
[2018-03-19 08:21] VITALS: BP 126/76
[2018-03-19 11:36] VITALS: BP 153/81
== END 2018-03-19 14:28 | disposition home or self-care (01) | DRG 65 ==
LOC: D.M2 13:01
PROVIDERS: Family Medicine
DX: I63.9 Cerebral infarction, unspecified (principal); I69.351 Hemiplegia and hemiparesis following cerebral infarction affecting right dominant side; R47.01 Aphasia; R40.2353 Coma scale, best motor response, localizes pain, at hospital admission; R40.2143 Coma scale, eyes open, spontaneous, at hospital admission; R40.2253 Coma scale, best verbal response, oriented, at hospital admission; I73.9 Peripheral vascular disease, unspecified; I25.10 Atherosclerotic heart disease of native coronary artery without angina pectoris; I10 Essential (primary) hypertension; E78.5 Hyperlipidemia, unspecified; M50.90 Cervical disc disorder, unspecified, unspecified cervical region; I25.2 Old myocardial infarction; I69.322 Dysarthria following cerebral infarction

== ENCOUNTER 2018-03-26 11:54 | Emergency (ER) | payer MEDICARE ==
[~2018-03-26] VITALS: Ht 172.7 cm; Wt 68.6 kg
[2018-03-26 11:58] VITALS: Ht 172.7 cm; Wt 68.6 kg
[2018-03-26 12:15] LABS: BASOPHILS 0.3 % (0-2); EOSINOPHILS 8.3 % (0-7); HEMATOCRIT 43.1 % (42.0-54.0); HEMOGLOBIN 14.8 g/dL (13.5-17.5); IMMATURE GRANULOCYTES 0.3 % (0-5); LYMPHOCYTES 22.9 % (15-50); MCH 30.3 pg (26.0-34.0); MCHC 34.3 g/dL (31.0-37.0); MCV 88.3 fL (80.0-100.0); MEAN PLATELET VOLUME 12.7 fL (7.4-10.4); NEUTROPHILS 58.2 % (40-80); PLATELET COUNT 207 10x3/uL (130-400); RBC 4.88 10x6/uL (4.20-6.10); RDW 14.6 % (11.5-14.5); WBC 6.5 10x3/uL (4.8-10.8)
[2018-03-26 12:25] LABS: APTT 29.8 SECONDS (22.8-39.4); INR 0.99 (0.85-1.17); PROTIME 12.7 SECONDS (11.6-15.0)
[2018-03-26 12:30] LABS: ALBUMIN 3.8 g/dL (3.4-5.0); ANION GAP 12.8 mmol/L (8-16); BILIRUBIN - TOTAL 0.55 mg/dL (0.2-1.3); CALCIUM 8.9 mg/dL (8.5-10.1); CARBON DIOXIDE 26.1 mmol/L (21.0-32.0); CREATININE - SERUM 1.2 mg/dL (0.6-1.3); POTASSIUM - SERUM 3.9 mmol/L (3.5-5.1); PROTEIN - SERUM 8.3 g/dL (6.4-8.2)
[2018-03-26 13:50] VITALS: BP 190/100
== END 2018-03-26 13:53 | disposition short-term general hospital (02) ==
LOC: D.ER 11:54
PROVIDERS: Family Medicine
DX: I63.9 Cerebral infarction, unspecified (principal); G81.94 Hemiplegia, unspecified affecting left nondominant side; R51 Headache

== ENCOUNTER → 2019-04-13 13:02 | Outpatient (CLI) | payer MEDICARE ==
[2018-03-26 11:58] VITALS: BMI 23.0
== END | disposition home or self-care (01) ==
LOC: D.US 04-12 13:00 → D.CT 04-12 13:30 → D.US 13:02
PROVIDERS: ATTEND Internal Medicine Cardiovascular Disease
DX: I70.219 Atherosclerosis of native arteries of extremities with intermittent claudication, unspecified extremity (principal)

== ENCOUNTER 2019-05-09 10:40 | Outpatient (CLI) | payer MEDICARE ==
[~2019-05-09] VITALS: Ht 172.7 cm; Wt 65.0 kg
--- NOTE | ~2019-05-09 | HEMODYNAMI ---
PATIENT:GREGORIO PORTILLO MEDICAL RECORD: [id number] : 64 [id number] ADMISSION DATE: 05/09/19 Generatedon:05/09/201916:04 Patient name: GREGORIO PORTILLO Patient #: [id number] SSN: : 1960 Date of study: 05/09/2019 Page: Of Hemodynamic Procedure Report Patient Data Patient Demographics Procedure consent was obtained First Name: GREGORIO Gender: Male Last Name: BANDAR : 1960 [facility] Initial: KEVIN Age: 58 year(s) Patient #: [id number] Race: Black Additional ID: [id number] Contact details Address: [address] [place] [address] State: [place] City: [facility] Zip code: [address] Past Medical History History of disease Date Diagnosis Comments Hypertension Allergies Allergen Reaction Date Comments Reported Penicillins 03/04/2015 Penicillins 05/09/2019 Admission Admission Data Admission Date: 05/09/2019 Admission Time: 10:40 Height (in.): 68 BSA: 1.77 (m2) Height (cm.): 172.72 BMI: 21.74 (kg/m2) Weight (lbs.): 143 Weight (kg.): 64.86 Procedure Procedure Types Cath Procedure Peripheral Cath Diagnostic Procedure Finishing Machine Operator Peripheral Procedures Abd/Extremity Extremities Right Lower Ext Arterio Procedure Description Procedure Date Procedure Date: 05/09/2019 Procedure Start Time: 13:26 Procedure Staff Name Function Za Bingham RT Cement Contractor Johnathon Roldan MD Performing Physician Leighann Deutsch RN Nurse Brook Panda RN Nurse HAM MARSHALL RT Scrub Procedure Data Cath Procedure Fluoroscopy Diagnostic fluoroscopy Total fluoroscopy Time: time: 28.6 min 28.6 min Diagnostic fluoroscopy Total fluoroscopy dose: 450 dose: 450 mGy mGy Contrast Material Contrast Material Type Amount (ml) Isovue 300 90 Entry Location Entry Primary Successful Side Size Upsize Upsize Entry Closure Succes sful Closure Location (Fr) 1 (Fr) 2 (Fr) Remarks Device Remarks Femoral Mynx artery Health Care Specialist 6Fr/7Fr Diagnostic catheters Device Type Used For End Catheter Placement DIAGNOSTIC IMT 5Fr Catheter ([id number]) Procedure Medications Medication Administration Route Dosage Heparin Flush Bag added to field 2 bags (1000units/500ml NS) Lidocaine 1% added to field 20 Heparin Bolus I.V. 3000 units Heparin Bolus I.V. 2000 units Nitroglycerin IC/IA I.A. 250 mcg Heparin Bolus I.V. 2000 units Hemodynamics Rest Pre Cath Intra NCS Post Cath Vital Signs Time SPO2 etCO2 NIBP (mmHg) Rhythm Pain Sedation (%) (mmHg) Status Level 13:05:09 94 0 149/87(128) NSR 0 (11) , 10(A) No pain 13:11:05 96 0 112/75(97) NSR 0 (11) , 10(A) No pain 13:18:34 94 0 105/67(85) NSR 0 (11) , 10(A) No pain 13:22:38 95 0 96/57(73) NSR 0 (11) , 10(A) No pain 13:26:35 95 0 99/62(74) NSR 0 (11) , 10(A) No pain 13:30:35 95 0 92/61(71) NSR 0 (11) , 10(A) No pain 13:34:32 96 0 97/61(72) NSR 0 (11) , 10(A) No pain 13:38:32 97 0 92/61(71) NSR 0 (11) , 10(A) No pain 13:42:32 96 0 88/54(63) NSR 0 (11) , 10(A) No pain 13:46:30 97 0 91/54(67) NSR 0 (11) , 10(A) No pain 13:50:29 96 0 84/54(65) NSR 0 (11) , 10(A) No pain 13:54:25 96 0 89/58(68) NSR 0 (11) , 10(A) No pain 13:58:22 95 0 89/59(69) NSR 0 (11) , 10(A) No pain 14:02:20 96 0 87/55(66) NSR 0 (11) , 10(A) No pain 14:06:17 96 0 90/56(67) NSR 0 (11) , 10(A) No pain 14:10:15 96 0 89/57(68) NSR 0 (11) , 10(A) No pain 14:14:13 95 0 93/57(70) NSR 0 (11) , 10(A) No pain 14:18:12 97 0 84/54(63) NSR 0 (11) , 10(A) No pain 14:20:21 96 0 86/51(70) NSR 0 (11) , 10(A) No pain 14:24:15 94 0 106/68(88) NSR 0 (11) , 10(A) No pain 14:28:16 94 0 101/63(81) NSR 0 (11) , 10(A) No pain 14:32:16 95 0 95/61(77) NSR 0 (11) , 10(A) No pain 14:36:16 95 0 89/56(71) NSR 0 (11) , 10(A) No pain 14:38:10 95 0 95/56(69) NSR 0 (11) , 10(A) No pain 14:42:08 94 0 98/64(78) NSR 0 (11) , 10(A) No pain 14:46:05 95 0 96/67(78) NSR 0 (11) , 10(A) No pain 14:50:40 92 0 123/91(105) NSR 0 (11) , 10(A) No pain 14:54:48 96 0 92/65(75) NSR 0 (11) , 10(A) No pain 14:58:46 96 0 94/62(69) NSR 0 (11) , 10(A) No pain 15:02:41 95 0 108/69(85) NSR 0 (11) , 10(A) No pain 15:06:39 96 0 105/76(90) NSR 0 (11) , 10(A) No pain 15:10:36 96 0 101/72(79) NSR 0 (11) , 10(A) No pain 15:14:34 97 0 104/69(84) NSR 0 (11) , 10(A) No pain 15:18:34 97 0 92/69(81) NSR 0 (11) , 10(A) No pain 15:22:29 98 0 100/67(82) NSR 0 (11) , 10(A) No pain 15:24:11 98 0 97/66(74) NSR 0 (11) , 10(A) No pain 15:28:48 99 0 123/90(106) NSR 0 (11) , 10(A) No pain 15:32:52 0 No Cuff NSR 0 (11) , 10(A) No pain Medications Time Medication Route Dose Verified Delivered Reason Notes Effe ctiveness by by 13:22:39 Heparin Flush added 2 Johnathon Diego used for Bag to bags Yuli Roldan procedure (1000units/500ml field MD HARDEN NS) 13:22:53 Lidocaine 1% added 20ml Johnathon Diego for local to vial Yuli Roldan anesthetic field MD HARDEN 13:37:48 Heparin Bolus I.V. 3000 Johnathon Lawton Per units Yuli ch MD 14:11:36 Heparin Bolus I.V. 2000 Johnathon Lawton Per units Yuli ch MD 14:19:41 Nitroglycerin I.A. 250 Johnathon Diego Per IC/IA mcg Yuli ch MD, MD 14:45:17 Heparin Bolus I.V. 2000 Johnathon Lawtno Per units Yuli ch MD Procedure Log Time Note 12:35:42 Patient Height : 68 inches 12:36:01 Patient Weight : 143 lbs 12:36:05 Use device set IR Diagnostic 12:36:07 Sterile Angiographic Pack opened to sterile field. 12:36:07 Tegaderm 4 x 4 (1626W) opened to sterile field. 12:36:09 Bag Decanter (2002S) opened to sterile field. 12:36:31 SHEATH 5FR Vida (ZZG409) opened to sterile field. 12:36:38 BENTSON 145cm wire (I06868) opened to sterile field. 12:36:48 Micropuncture VSI 4FR kit opened to sterile field. 12:39:51 MORRELL 260 wire (I33927) opened to sterile field. 12:40:00 TORQUE DEVICE PLASTIC .038 ( TD01) opened to sterile field. 12:40:36 GLIDE WIRE ANGLE 260cm (RV1288) opened to sterile field. 12:40:51 - 12:50:48 Time tracking: Regular hours (M-F 7:00 - 5:00) 12:57:39 Plan of Care:Hemodynamics will remain stable., Cardiac rhythm will remain stable., Comfort level will be maintained., Respiratory function will remain adequate., Patient/ family verbilizes understanding of procedure., Procedure tolerated without complication., Recovers from procedure without complications.. 12:57:48 Patient received from Outpatients to IR Alert and oriented. Tansferred to table in Supine position. 12:57:51 Signed procedure consent form obtained from patient. 12:57:56 Warm blankets applied, and carlos hugger turned on for patient comfort. 12:57:58 Correct patient and procedure confirmed by team. 12:58:08 H&P Date Dictated: 05/09/2019 Within 30 days and on chart.. 12:58:10 Pre-procedure instructions explained to patient. 12:58:11 Pre-op teaching completed and patient verbalized understanding. 12:58:17 Family in waiting room. 12:58:21 Patient NPO since Midnight. 12:58:34 Patient allergic to Penicillins 12:58:40 Is the patient allergic to Iodine/contrast media? No. 12:58:54 Is patient on blood thinner?Yes 12:58:59 ACC The patient was administered the following blood thiners within the last 24 hours: ACCPlavix 12:59:18 Patient diabetic? No. 12:59:33 - 12:59:35 ----Pre-sedation anethsthesia assessment.----SEE ANESTHESIA NOTES FOR MONITORING OF PATIENT DURING PROCEDURE 13:02:45 - 13:02:50 Pre procedure: right dorsailis pedis pulse Doppler 13:02:54 Pre procedure: left dorsailis pedis pulse Doppler 13:02:57 Pre procedure: right posterior tibial pulse Doppler 13:03:01 Pre procedure: left posterior tibial pulse Doppler 13:03:28 IV patent on arrival in right forearm with D5/.45%NaCl at [facility]. 13:03:58 Left groin area was prepped with chlora-prep and draped in sterile fashion 13:17:42 Vital chart was started 13:22:39 Heparin Flush Bag (1000units/500ml NS) 2 bags added to field was administered by Johnathon Roldan MD; used for procedure; 13::53 Lidocaine 1% 20ml vial added to field was administered by Johnathon null MD; for local anesthetic; 13:23:51 ANESTHESIA MONITORING GISEL GARCIA 13:24:48 - 13:25:09 Fire Safety Assessment: A--An alcohol-based skin anteseptic being used preoperatively., C--Open oxygen or nitrous oxide is being used. 13:25:12 Physician arrived 13:25:15 --------ALL STOP TIME OUT------ 13:25:16 Final Timeout: patient, procedure, and site verified with staff and physician. All members of the team are in agreement. 13:26:17 Full Disclosure recording started 13::17 Procedure started. 13:26:23 Local anesthetic to left femerol artery with Lidocaine 1% by Johnathon Roldan MD.INITIAL ACCESS ONLY 13:31:42 A DIAGNOSTIC IMT 5Fr Catheter ([id number]) was advanced over the wire an d used for . 13:31:51 Arterial access obtained using ultrasound guidance. 13:37:48 Heparin Bolus 3000 units I.V. was administered by Leighann Deutsch RN; Per physician; 13:41:00 INFLATOR BasixTOUCH (NN5302) opened to sterile field. 13:41:34 Inflate balloon Inflation number: 1 A Evercross 6 x 4 x 135 Balloon ([id number]) was prepped and advanced across the Undefined1 , then inflated . 13:45:09 ROADRUNNER .035 260 glide wire (Y56776) opened to sterile field. 13:49:58 CXI SUPPORT .035 135 CM STR catheter (D03675) opened to sterile field. 13:50:57 SHEATH 6FR Destination (RSR01) opened to sterile field. 13:58:55 TREASURE 12 300cm wire ([id number]) opened to sterile field. 14:00:09 CXI SUPPORT .018 150CM ANG catheter (G05349) opened to sterile field. 14:11:36 Heparin Bolus 2000 units I.V. was administered by Leighann Deutsch RN; Per physician; 14:15:41 Hawkone Medium Atherectomy System (H1-M) opened to sterile field. 14:19:41 Nitroglycerin IC/IA 250 mcg I.A. was administered by Johnathon Roldan MD; Per physician; 14:23:50 CHOICE PT Extra Support J 300cm guide wire ([id number]) opened to steril e field. 14:41:51 Inflate balloon Inflation number: 1 A IN.PACT Admiral 6 x 150 x 130 DCB balloon ([id number]) was prepped and advanced across the Undefined2 , then inflated . 14:45:17 Heparin Bolus 2000 units I.V. was administered by Leighann Deutsch RN; Per physician; 14:52:14 Inflate balloon Inflation number: 1 A IN.PACT Admiral 6 x 120 x 130 DCB Balloon ([id number]) was prepped and advanced across the Undefined3 , then inflated . 15:22:25 MYNX NAIL CUTTER 6FR/7FR (FA6985) opened to sterile field. 15:23:08 Sheath removed intact; hemostasis achieved with Mynx Health Care Specialist 6Fr/7Fr to th e Femoral artery. 15:23:08 A sheath was inserted into the Femoral artery 15:23:13 Procedure ended.(Physican Out) 15:23:40 Fluoroscopy time 28.60 minutes. 15:23:52 Fluoroscopy dose: 450 mGy 15:23:52 Flurop Dose total: 450 15:23:59 Contrast amount:Isovue 300 90ml. 15:24:03 Procedure and supply charges have been captured, reviewed, submitted an d are correct. 15:33:30 Post Procedure Pulses reassessed and unchanged 15:33:46 Report given to Other. PATIENT TRANSFERED TO PACU 15:34:56 Vital chart was stopped 15:35:07 Full Disclosure recording stopped Intervention Summary Intervention Notes Time ActionType Lesion and Equipment Used Action# Pressure Duration Attributes 13:41:34 Inflate Undefined1 Evercross 6 x 4 1 0 00:00 balloon x 135 Balloon ([id number]) 14:41:51 Inflate Undefined2 IN.PACT Admiral 1 0 00:00 balloon 6 x 150 x 130 DCB balloon ([id number]) 14:52:14 Inflate Undefined3 IN.PACT Admiral 1 0 00:00 balloon 6 x 120 x 130 DCB Balloon ([id number]) Device Usage Item Name Manufacture Quantity Catalog Number [facility] Minimal Lot# / Charge Number Stock Stock Serial# Code Tegaderm 4 x 4 3M 1 1626W [id number] [id number] [id number] 5 (1626W) Sterile Cardinal 1 [id number] 716058 726977 5 Angiographic Health Pack Bag Decanter Microtek 1 850234 50490 934859 5 () Medical Inc. SHEATH 5FR Terumo 1 DLM641 053680 730412 323085 5 Vida (GKJ463) BENTSON 145cm [employer] 1 Y15059 479265 254337 5 wire (Q86143) Micropuncture VSI VASCULAR 1 7266V 167643 853401 5 VSI 4FR kit SOLUTIONS MORRELL 260 wire [employer] 1 D88517 027728 90651 677639 5 0851506 (Y67000) TORQUE DEVICE Gaylord 1 TD01 681206 098903 012081 5 PLASTIC .038 ( Scientific TD01) GLIDE WIRE Terumo 1 GL2619 709800 330459 029793 5 ANGLE 260cm (PG9182) DIAGNOSTIC IMT Gaylord 1 [id number] 290431 560768 17451 5 [id number] 5Fr Catheter Scientific ([id number]) INFLATOR [facility] 1 NY0224 274665 023353 667541 5 BasixTOUCH (XK3764) Evercross 6 x 4 Medtronic 1 [id number] 431492 233524 092848 5 x 135 Balloon ([id number]) ROADRUNNER .035 [employer] 1 G33727 012106 626807 879094 5 1617123 260 glide wire (T95294) CXI SUPPORT [employer] 1 Y27100 655027 431308 534645 5 1515798 .035 135 CM STR catheter (U86293) SHEATH 6FR Terumo 1 RSR01 746651 44665 424151 5 Destination (RSR01) TREASURE 12 Cardiovascular 1 [id number] 075353 067342 980701 5 300cm wire systems ([id number]) CXI SUPPORT [employer] 1 E83821 538284 507436 893540 5 7445035 .018 150CM ANG catheter (P46105) Hawkone Medium Medtronic 1 H1-M 716150 969090 70 5 [id number] Atherectomy System (H1-M) CHOICE PT Extra Gaylord 1 [id number] 989798 20190313 338485 5 Support J 300cm Scientific guide wire ([id number]) IN.PACT Admiral Medtronic 1 [id number] 757912 9429840 242519 5 6 x 150 x 130 DCB balloon ([id number]) IN.PACT Admiral Medtronic 1 [id number] 908070 280670 009056 5 6 x 120 x 130 DCB Balloon ([id number]) MYNX NAIL CUTTER Access Closure 1 OC6105 459296 533246 5 [id number] 6FR/7FR (CN0733) Signature Audit [place] Stage Time Signature Unsigned Intra-Procedure 05/09/2019 Za Bingham RT(R) 3:34:51 PM RT(R) 05/09/2019 4:01:32 PM Intra-Procedure 05/09/2019 Za Bingham 4:04:04 PM RT(R) [place] [id number] [place] [address]
[2019-05-09 10:53] LABS: BASOPHILS 0.3 % (0-2); EOSINOPHILS 5.3 % (0-7); HEMATOCRIT 43.5 % (42.0-54.0); HEMOGLOBIN 15.3 g/dL (13.5-17.5); LYMPHOCYTES 17.7 % (15-50); MCH 30.4 pg (26.0-34.0); MCHC 35.2 g/dL (31.0-37.0); MCV 86.5 fL (80.0-100.0); MEAN PLATELET VOLUME 12.2 fL (7.4-10.4); MONOCYTES 6.7 % (2-11); PLATELET COUNT 226 10x3/uL (130-400); RBC 5.03 10x6/uL (4.20-6.10); RDW 14.9 % (11.5-14.5); WBC 6.8 10x3/uL (4.8-10.8)
[2019-05-09 11:03] LABS: ANION GAP 8.6 mmol/L (8-16); CALCIUM 9.1 mg/dL (8.5-10.1); CARBON DIOXIDE 31.3 mmol/L (21.0-32.0); CREATININE - SERUM 1.1 mg/dL (0.6-1.3); POTASSIUM - SERUM 3.9 mmol/L (3.5-5.1)
[2019-05-09 11:14] LABS: APTT 29.9 SECONDS (22.8-39.4); INR 0.98 (0.85-1.17); PROTIME 12.5 SECONDS (11.6-15.0)
[2019-05-09 11:58] VITALS: BP 133/86; Ht 172.7 cm; Wt 65.0 kg
--- NOTE | 2019-05-09 15:37 | NUR ---
PATIENT ARRIVED TO PACU IN SUPINE POSITION WITH BED FLAT. DRESSING NOTED TO LT GROIN WITH CDI. B/L PEDAL PULSES PALPABLE AND MARKED. PATIENT TO REMAIN FLAT FOR 4 HOURS.
--- NOTE | 2019-05-09 15:57 | NUR ---
300 CC URINE OUTPUT AT THIS TIME
--- NOTE | 2019-05-09 16:48 | NUR ---
1630 RECEIVED PLAVIX 150MG PO PER MD ORDER. MILD ELEVATED B/P PALP PULSES IN LEFT FOOT. DRESSING CDI. FOOT WARM AND GOOD CAP REFILL. SISTER AT BEDSIDE. OFFERED PT SOMETHING TO EAT BUT REFUSED FOR NOW. DENIES PAIN TO LEFT GROIN.
--- NOTE | 2019-05-09 16:52 | NUR ---
1605 FREQUENT VS DONE.
--- NOTE | 2019-05-09 17:43 | NUR ---
1745 PT COUGHED AND WAS IN A LOT OF PAIN TO GROIN. AREA SOFT AND NO BLEEDING NOTED. INSTRUCTIONS GIVEN AND REVIEWED. B/P IMPROVING. VOIDED 350 CLEAR YELLOW URINE
--- NOTE | 2019-05-09 18:06 | NUR ---
1800 RECIEVED FINGER FOOD TRAY BUT PT UNABLE TO EAT DUE TO SORE THROAT.
--- NOTE | 2019-05-09 18:27 | NUR ---
1830 PT TURNED TO LEFT SIDE KEEPING LEFT LEG STRAIGHT.
--- NOTE | 2019-05-09 20:10 | NUR ---
1934 IV REMOVED PRESSURE HELD AND DRESSING APPLIED. NO BLEEDING NOTED TO LEFT GROIN.
== END 2019-05-09 19:50 | disposition home or self-care (01) ==
LOC: D.SP 10:40
PROVIDERS: ATTEND Radiology Diagnostic Radiology
DX: I70.213 Atherosclerosis of native arteries of extremities with intermittent claudication, bilateral legs (principal); I70.92 Chronic total occlusion of artery of the extremities; Z01.812 Encounter for preprocedural laboratory examination

== ENCOUNTER → 2021-03-06 12:53 | Outpatient (CLI) | payer MEDICARE ==
[2019-05-09 11:58] VITALS: BMI 21.7
== END | disposition home or self-care (01) ==
LOC: D.CT 12:53
PROVIDERS: ATTEND Family Medicine
DX: R10.10 Upper abdominal pain, unspecified (principal)